=== PATIENT | female | born 1950 | race African-American/Black ===

== ENCOUNTER 2016-11-17 11:02 | Emergency (ER) | payer MEDICAID, OTHER ==
[~2016-11-17] VITALS: Ht 177.8 cm; Wt 105.0 kg
[~2016-11-17 11:02] MED LIST: BENA20TA77; MONT10TA21; QVAR80; TERB250T11; albuterol HHN
[2016-11-17] MEDS ORDERED: OLAN10TA19 PO (11:19)
[2016-11-17 12:23] LABS: BASOPHILS % 1.1 % (0.0-2.0); EOSINOPHILS % 0.8 % (0.0-5.0); HEMATOCRIT. 38.8 % (36.0-48.0); LYMPHOCYTES % 29.3 % (20.0-50.0); MEAN CORPUSCULAR HEMOGLOBIN 28.7 pg (28.0-32.0); MEAN CORPUSCULAR VOLUME 85.8 fL (81.0-99.0); NEUTROPHILS % 60.8 % (40.0-76.0); PLATELET 212 x1000/uL (130-400); RED BLOOD CELL COUNT 4.52 mill/uL (4.2-5.4); RED CELL DISTRIBUTION WIDTH 14.8 % (11.6-14.6)
[2016-11-17 12:25] LABS: PROTHROMBIN TIME 10.5 sec (9.4-11.6)
[2016-11-17 12:33] LABS: CARBON DIOXIDE 26 mEq/L (21-32); CHLORIDE 113 mEq/L (98-107); TROPONIN I < 0.02 ng/mL (0.00-0.04)
[2016-11-17] MEDS ORDERED: IPRATROPIUM BROMIDE (0.02%) 0.5MG/2.5ML NEB HHN STA (16:07)
[2016-11-17] MEDS ORDERED: ALBUTEROL (0.083%) 2.5MG/3ML NEB HHN STA (16:07)
[2016-11-17 17:40] VITALS: BP 153/90
== END 2016-11-17 17:45 | disposition home or self-care (01) ==
LOC: ER 12:59
DX: S00.83XA Contusion of other part of head, initial encounter (principal); R06.02 Shortness of breath; R73.9 Hyperglycemia, unspecified; J44.9 Chronic obstructive pulmonary disease, unspecified; F20.9 Schizophrenia, unspecified; F17.210 Nicotine dependence, cigarettes, uncomplicated; E87.6 Hypokalemia; E87.8 Other disorders of electrolyte and fluid balance, not elsewhere classified; Z98.890 Other specified postprocedural states; X58.XXXA Exposure to other specified factors, initial encounter; Y93.89 Activity, other specified; Y92.099 Unspecified place in other non-institutional residence as the place of occurrence of the external cause
CPT/HCPCS: 36415; 71010; 80053; 83880; 84484; 85025; 85610; 93005; 94640; 99285; J7611; Z7610

== ENCOUNTER 2016-11-30 08:54 | Inpatient (IN) | payer MEDICAID ==
[~2016-11-30] VITALS: Ht 177.8 cm; Wt 107.0 kg
[~2016-11-30 08:54] MED LIST changes: +OLAN10TA19 PO
[2016-11-30] MEDS ORDERED: METHYLPREDNISOLONE SOD SUCC 125 MG/2 ML VIAL IV STA (09:46)
[2016-11-30] MEDS ORDERED: IPRATROPIUM/ALBUTEROL 0.5-3(2.5)MG/3ML NEB HHN ONE (10:00)
[2016-11-30 10:50] LABS: BASOPHILS % 0.7 % (0.0-2.0); EOSINOPHILS % 1.1 % (0.0-5.0); HEMATOCRIT. 39.5 % (36.0-48.0); HEMOGLOBIN. 13.3 g/dL (12.0-16.0); LYMPHOCYTES % 28.3 % (20.0-50.0); MEAN CORPUSCULAR HEMOGLOBIN 28.7 pg (28.0-32.0); MEAN CORPUSCULAR VOLUME 85.2 fL (81.0-99.0); MEAN PLATELET VOLUME 8.2 fl (7.4-10.4); MONOCYTES % 7.8 % (2.0-8.0); NEUTROPHILS % 62.1 % (40.0-76.0); PLATELET 234 x1000/uL (130-400); RED BLOOD CELL COUNT 4.63 mill/uL (4.2-5.4); RED CELL DISTRIBUTION WIDTH 14.7 % (11.6-14.6)
[2016-11-30 10:59] LABS: PARTIAL THROMBOPLASTIN TIME 24.9 sec (23.4-31.0); PROTHROMBIN TIME 10.5 sec (9.4-11.6)
[2016-11-30 11:08] LABS: CARBON DIOXIDE 29 mEq/L (21-32); CHLORIDE 106 mEq/L (98-107); TROPONIN I < 0.02 ng/mL (0.00-0.04)
[2016-11-30 16:15] VITALS: BP 139/77
[2016-11-30 16:30] VITALS: BP 139/77
[2016-11-30] MEDS ORDERED: LISI10TA5 PO (17:37)
[2016-11-30] MEDS ORDERED: ASPI-1159 PO (17:37)
[2016-11-30] MEDS ORDERED: HYDR12.54 PO (17:37)
[2016-11-30] MEDS ORDERED: BUDE6HFA INH (17:46)
[2016-11-30] MEDS ORDERED: IPRATROPIUM/ALBUTEROL 0.5-3(2.5)MG/3ML NEB HHN PRN (18:15)
[2016-11-30] MEDS ORDERED: POTASSIUM CHLORIDE 20MEQ TABLET SR PO NR (18:22)
[2016-11-30] MEDS ORDERED: HYDROCODONE/ACETAMINOPHEN 10/325MG TABLET PO PRN (18:22)
[2016-11-30] MEDS: METHYLPREDNISOLONE SOD SUCC 40 MG/ML VIAL IV SCH (18:44)
[2016-11-30 20:00] VITALS: BP 133/79
[2016-11-30] MEDS: LEVOFLOXACIN 500MG PREMIX 100 ML IV SCH (20:00)
[2016-11-30] MEDS: IPRATROPIUM/ALBUTEROL 0.5-3(2.5)MG/3ML NEB HHN SCH (20:30)
[2016-11-30 22:00] VITALS: BP 133/79
[2016-12-01] VITALS (8 sets, daily range): BP systolic 105–162; BP diastolic 56–94
[2016-12-01] MEDS: IPRATROPIUM/ALBUTEROL 0.5-3(2.5)MG/3ML NEB HHN SCH ×6 (00:56→21:09)
[2016-12-01] MEDS: METHYLPREDNISOLONE SOD SUCC 40 MG/ML VIAL IV SCH ×3 (01:47→17:55)
[2016-12-01] MEDS ORDERED: MEDICATION NOT ON FORMULARY EA (Hydrochlorothiazide 12.5 MG) PO SCH (09:00)
[2016-12-01] MEDS: HYDROCHLOROTHIAZIDE 12.5MG CAPSULE PO SCH (09:19)
[2016-12-01] MEDS: LISINOPRIL 10MG TABLET PO SCH (09:21)
[2016-12-01] MEDS: ASPIRIN 81MG EC TABLET PO SCH (09:21)
[2016-12-01] MEDS: ENOXAPARIN 40MG/0.4ML SYR SUBCUT SCH (09:23)
[2016-12-01] MEDS ORDERED: BUDESONIDE 0.5MG/2ML NEB HHN SCH (17:15)
[2016-12-01] MEDS: LEVOFLOXACIN 500MG PREMIX 100 ML IV SCH (20:05)
[2016-12-01] MEDS: BUDESONIDE 0.5MG/2ML NEB HHN SCH (21:09)
[2016-12-01 21:21] LABS: T4 FREE 0.97 ng/dL (0.76-1.46)
[2016-12-02] VITALS: BP 108/72
[2016-12-02] MEDS: IPRATROPIUM/ALBUTEROL 0.5-3(2.5)MG/3ML NEB HHN SCH ×4 (00:58→12:46)
[2016-12-02] MEDS: METHYLPREDNISOLONE SOD SUCC 40 MG/ML VIAL IV SCH ×2 (02:20→09:53)
[2016-12-02 04:00] VITALS: BP 111/68
[2016-12-02 08:00] VITALS: BP 134/76
[2016-12-02] MEDS: BUDESONIDE 0.5MG/2ML NEB HHN SCH (08:28)
[2016-12-02] MEDS: HYDROCHLOROTHIAZIDE 12.5MG CAPSULE PO SCH (09:23)
[2016-12-02] MEDS: ASPIRIN 81MG EC TABLET PO SCH (09:24)
[2016-12-02] MEDS: LISINOPRIL 10MG TABLET PO SCH (09:24)
[2016-12-02] MEDS: ENOXAPARIN 40MG/0.4ML SYR SUBCUT SCH (09:24)
[2016-12-02 12:00] VITALS: BP 136/83
[2016-12-02 16:00] VITALS: BP 131/96
[2016-12-02] MEDS ORDERED: METH4TAB17 PO (16:52)
[2016-12-02] MEDS ORDERED: LEVO500T2 PO (16:52)
[2016-12-02] MEDS ORDERED: BUDE6HFA INH (16:52)
[2016-12-02 16:54] VITALS: BP 136/83
[2016-12-02] MEDS ORDERED: LEVOFLOXACIN 500MG TABLET PO SCH (17:00)
[2016-12-02] MEDS ORDERED: PREDNISONE 20MG TABLET PO SCH (17:00)
== END 2016-12-02 17:40 | disposition home or self-care (01) | DRG 140 ==
LOC: ER 11:19 → 5WST 11:59 → EDBEDREQ 12:00 → ENRESERV 14:46
PROVIDERS: ADMIT Internal Medicine; ATTEND Internal Medicine
DX: J44.1 Chronic obstructive pulmonary disease with (acute) exacerbation (principal); J96.20 Acute and chronic respiratory failure, unspecified whether with hypoxia or hypercapnia; I50.9 Heart failure, unspecified; I11.0 Hypertensive heart disease with heart failure; Z99.81 Dependence on supplemental oxygen; F20.9 Schizophrenia, unspecified; E07.9 Disorder of thyroid, unspecified; F17.200 Nicotine dependence, unspecified, uncomplicated; E03.9 Hypothyroidism, unspecified; E66.9 Obesity, unspecified; Z79.899 Other long term (current) drug therapy; Z68.33 Body mass index [BMI] 33.0-33.9, adult
CPT/HCPCS: 36415; 71010; 80053; 83880; 84439; 84443; 84481; 84484; 85025; 85610; 85730; 93005; 93306; 94640; 96374; 99285; J1650; J1956; J2920; J2930; J7050; J7512; J7620; J7626

== ENCOUNTER 2017-04-15 09:40 | Emergency (ER) | payer MEDICAID ==
[~2017-04-15] VITALS: Ht 177.8 cm; Wt 105.0 kg
[~2017-04-15 09:40] MED LIST changes: +ASPI-1159 PO; -BENA20TA77; +BUDE6HFA INH; +HYDR12.54 PO; +LEVO500T2 PO; +LISI10TA5 PO; +METH4TAB17 PO; -MONT10TA21; -OLAN10TA19 PO; -QVAR80; -TERB250T11
[2017-04-15] MEDS ORDERED: ALBUTEROL (0.083%) 2.5MG/3ML NEB HHN STA (10:24)
[2017-04-15] MEDS ORDERED: SODIUM CHLORIDE 0.9% 1,000 ML IV ONE (10:24)
[2017-04-15] MEDS ORDERED: METHYLPREDNISOLONE SOD SUCC 125 MG/2 ML VIAL IV STA (10:24)
[2017-04-15] MEDS ORDERED: IPRATROPIUM BROMIDE (0.02%) 0.5MG/2.5ML NEB HHN STA (10:24)
[2017-04-15 11:02] LABS: BASOPHILS % 1.1 % (0.0-2.0); EOSINOPHILS % 1.5 % (0.0-5.0); HEMATOCRIT. 41.4 % (36.0-48.0); HEMOGLOBIN. 13.8 g/dL (12.0-16.0); LYMPHOCYTES % 40.9 % (20.0-50.0); MEAN CORPUSCULAR HEMOGLOBIN 28.7 pg (28.0-32.0); MEAN CORPUSCULAR VOLUME 86.3 fL (81.0-99.0); MEAN PLATELET VOLUME 7.3 fl (7.4-10.4); NEUTROPHILS % 46.5 % (40.0-76.0); PLATELET 234 x1000/uL (130-400); RED CELL DISTRIBUTION WIDTH 15.3 % (11.6-14.6)
[2017-04-15 11:17] LABS: CARBON DIOXIDE 31 mEq/L (21-32); CHLORIDE 108 mEq/L (98-107); TROPONIN I < 0.02 ng/mL (0.00-0.04)
[2017-04-15 11:48] LABS: CLARITY URINE CLEAR (CLEAR); COLOR URINE YELLOW (YELLOW); KETONES URINE NEGATIVE (NEGATIVE); LEUKOCYTE ESTERASE URINE TRACE (NEGATIVE); NITRITE URINE NEGATIVE (NEGATIVE); OCCULT BLOOD URINE NEGATIVE (NEGATIVE); PH URINE 6.5 (4.5-8.0); PROTEIN URINE NEGATIVE (NEGATIVE); SPECIFIC GRAVITY URINE 1.009 (1.005-1.030); UROBILINOGEN URINE 0.2 E.U./dL (0.2-1.0)
[2017-04-15 13:09] VITALS: BP 160/97
== END 2017-04-15 13:10 | disposition home or self-care (01) ==
LOC: ER 09:59
DX: J44.1 Chronic obstructive pulmonary disease with (acute) exacerbation (principal); I10 Essential (primary) hypertension; F20.9 Schizophrenia, unspecified; F17.200 Nicotine dependence, unspecified, uncomplicated; Z79.82 Long term (current) use of aspirin
CPT/HCPCS: 36415; 71045; 80053; 81001; 83690; 84484; 85025; 93005; 94640; 96361; 96374; 99285; J2930; J7030; J7611

== ENCOUNTER 2017-05-18 18:01 | Observation (INO) | payer MEDICAID ==
[~2017-05-18] VITALS: Ht 177.8 cm; Wt 104.3 kg
[2017-05-18] MEDS ORDERED: DIPHENHYDRAMINE 50MG/ML VIAL IV ONE (21:00)
[2017-05-18] MEDS ORDERED: METHYLPREDNISOLONE SOD SUCC 125 MG/2 ML VIAL IV ONE (21:00)
[2017-05-18] MEDS ORDERED: FAMOTIDINE 20MG/2ML VIAL IV ONE (21:00)
[2017-05-18 21:45] LABS: CHLORIDE 108 mEq/L (98-107)
[2017-05-18 21:46] LABS: PROTHROMBIN TIME 10.8 sec (9.4-11.6)
[2017-05-18 21:49] LABS: BASOPHILS % 0.4 % (0.0-2.0); HEMATOCRIT. 42.9 % (36.0-48.0); HEMOGLOBIN. 14.2 g/dL (12.0-16.0); LYMPHOCYTES % 13.6 % (20.0-50.0); MEAN CORPUSCULAR VOLUME 87.3 fL (81.0-99.0); MEAN PLATELET VOLUME 8.1 fl (7.4-10.4); MONOCYTES % 3.8 % (2.0-8.0); NEUTROPHILS % 82.2 % (40.0-76.0); PLATELET 267 x1000/uL (130-400); RED BLOOD CELL COUNT 4.91 mill/uL (4.2-5.4); RED CELL DISTRIBUTION WIDTH 14.7 % (11.6-14.6)
[2017-05-18 21:56] LABS: TROPONIN I < 0.02 ng/mL (0.00-0.04)
[2017-05-19 01:14] VITALS: BP 152/93
[2017-05-19 04:00] VITALS: BP 145/76
[2017-05-19] MEDS ORDERED: GUAIFENESIN/CODEINE 200-20MG/10ML UDC PO PRN (06:30)
[2017-05-19] MEDS ORDERED: GUAIFENESIN-DM 200MG-20MG/10ML UDC PO PRN (06:45)
[2017-05-19] MEDS ORDERED: PRED5TAB48 PO (08:47)
[2017-05-19] MEDS ORDERED: HYDROCODONE/ACETAMINOPHEN 10/325MG TABLET PO PRN (10:45)
[2017-05-19] MEDS ORDERED: ASPIRIN 81MG EC TABLET PO SCH (10:45)
[2017-05-19] MEDS ORDERED: DIPHENHYDRAMINE 50MG/ML VIAL IV PRN (10:45)
[2017-05-19] MEDS ORDERED: HYDROCODONE/ACETAMINOPHEN 5/325MG TABLET PO PRN (10:45)
[2017-05-19] MEDS ORDERED: NA PHOS,M-B/NA PHOS,DI-BA ENEMA 118ML PR PRN (10:45)
[2017-05-19] MEDS ORDERED: LORAZEPAM 0.5MG TABLET PO PRN (10:45)
[2017-05-19] MEDS ORDERED: ONDANSETRON HCL 4MG/2ML VIAL IV PRN (10:45)
[2017-05-19] MEDS ORDERED: LISINOPRIL 10MG TABLET PO SCH (10:45)
[2017-05-19] MEDS ORDERED: DOCUSATE SODIUM 100MG CAPSULE PO PRN (10:45)
[2017-05-19] MEDS ORDERED: ACETAMINOPHEN 325MG TABLET PO PRN (10:45)
[2017-05-19] MEDS ORDERED: ENOXAPARIN 40MG/0.4ML SYR SUBCUT SCH (10:45)
[2017-05-19] MEDS ORDERED: CLONIDINE 0.1MG TABLET PO PRN (10:45)
[2017-05-19] MEDS ORDERED: GUAIFENESIN 200MG/10ML SUGAR FREE UDC PO PRN (10:45)
[2017-05-19] MEDS ORDERED: ENOXAPARIN 30MG/0.3ML SYR SUBCUT SCH (11:00)
[2017-05-19] MEDS ORDERED: IPRATROPIUM/ALBUTEROL 0.5-3(2.5)MG/3ML NEB HHN SCH (12:00)
[2017-05-19] MEDS ORDERED: POLYETHYLENE GLYCOL 3350 (17GM) 1 DOSE PACK PO SCH (12:30)
[2017-05-19 16:00] VITALS: BP 130/70
[2017-05-19] MEDS ORDERED: MORPHINE SULFATE 4 MG/ML CPJ (NOT FOR IM USE) IV PRN (17:10)
[2017-05-19 17:25] LABS: CREATINE KINASE 118 IU/L (26-192); CREATINE KINASE MB FRACTION 1.7 ng/mL (0.5-3.6); HDL CHOLESTEROL 75 mg/dL (40-59); LDL CHOLESTEROL 57 mg/dL (5-100); TROPONIN I < 0.02 ng/mL (0.00-0.04)
[2017-05-19 17:43] VITALS: BP 131/73
[2017-05-19] MEDS ORDERED: AMLODIPINE 5MG TABLET PO SCH (21:00)
== END 2017-05-19 19:30 | disposition home or self-care (01) ==
LOC: EDBEDREQ 21:00 → EDBEDREQTM 22:35 → EDBEDREQ 22:35 → ENRESERV 22:41 → ER 23:50 → INTOOBSV 23:51 → 8WST 23:51
PROVIDERS: ADMIT Internal Medicine; ATTEND Internal Medicine
DX: T46.4X5A Adverse effect of angiotensin-converting-enzyme inhibitors, initial encounter (principal); R07.0 Pain in throat; R07.89 Other chest pain; J44.9 Chronic obstructive pulmonary disease, unspecified; I10 Essential (primary) hypertension; E66.9 Obesity, unspecified; F17.200 Nicotine dependence, unspecified, uncomplicated; Y92.89 Other specified places as the place of occurrence of the external cause
CPT/HCPCS: 36415; 71045; 80053; 80061; 82550; 82553; 84484; 85025; 85610; 86850; 86900; 86901; 93005; 94664; 96372; 96374; 96375; 99285; G0378; J1200; J1650; J2930; J3490; J7620

== ENCOUNTER 2019-12-03 17:46 | Emergency (ER) | payer MEDICAID ==
[~2019-12-03] VITALS: Ht 177.8 cm; Wt 99.7 kg
[~2019-12-03 17:46] MED LIST changes: -ASPI-1159 PO; +ASPI-1497 PO; -LISI10TA5 PO
[2019-12-03] MEDS ORDERED: SODIUM CHLORIDE 0.9% 1,000 ML IV ONE (18:33)
[2019-12-03 19:22] LABS: BASOPHILS % 0.8 % (0.0-2.0); HEMATOCRIT. 46.3 % (36.0-48.0); HEMOGLOBIN. 15.2 g/dL (12.0-16.0); LYMPHOCYTES % 35.2 % (20.0-50.0); MEAN CORPUSCULAR HEMOGLOBIN 29.1 pg (28.0-32.0); MEAN CORPUSCULAR VOLUME 88.6 fL (81.0-99.0); MEAN PLATELET VOLUME 7.9 fl (7.4-10.4); MONOCYTES % 7.6 % (2.0-8.0); NEUTROPHILS % 55.4 % (40.0-76.0); PLATELET 255 x1000/uL (130-400); RED BLOOD CELL COUNT 5.22 mill/uL (4.2-5.4); RED CELL DISTRIBUTION WIDTH 14.7 % (11.6-14.6)
[2019-12-03 19:29] LABS: CHLORIDE 104 mEq/L (98-107)
[2019-12-03] MEDS ORDERED: POTASSIUM CHLORIDE 20MEQ TABLET SR PO NR (19:30)
[2019-12-03 22:20] LABS: CLARITY URINE CLOUDY (CLEAR); COLOR URINE YELLOW (YELLOW); KETONES URINE TRACE (NEGATIVE); LEUKOCYTE ESTERASE URINE 1+ (NEGATIVE); NITRITE URINE NEGATIVE (NEGATIVE); OCCULT BLOOD URINE NEGATIVE (NEGATIVE); PH URINE >=9.0 (4.5-8.0); PROTEIN URINE TRACE (NEGATIVE); SPECIFIC GRAVITY URINE 1.021 (1.005-1.030); UROBILINOGEN URINE 0.2 E.U./dL (0.2-1.0)
[2019-12-03 23:15] VITALS: BP 128/79
== END 2019-12-03 23:10 | disposition home or self-care (01) ==
LOC: ER 17:46
DX: E87.6 Hypokalemia (principal); N39.0 Urinary tract infection, site not specified; R03.0 Elevated blood-pressure reading, without diagnosis of hypertension; J44.9 Chronic obstructive pulmonary disease, unspecified
CPT/HCPCS: 36415; 70450; 71045; 80053; 81003; 83880; 84484; 85025; 93005; 96360; 96361; 99285; J7030

== ENCOUNTER 2020-01-11 11:09 | Emergency (ER) | payer MEDICAID ==
[~2020-01-11] VITALS: Ht 175.3 cm; Wt 111.0 kg
[2020-01-11] MEDS ORDERED: HYDROCODONE/ACETAMINOPHEN 5/325MG TABLET PO ONE (12:00)
[2020-01-11 12:30] LABS: BASOPHILS % 0.9 % (0.0-2.0); EOSINOPHILS % 1.7 % (0.0-5.0); HEMATOCRIT. 42.7 % (36.0-48.0); HEMOGLOBIN. 14.1 g/dL (12.0-16.0); LYMPHOCYTES % 30.9 % (20.0-50.0); MEAN CORPUSCULAR HEMOGLOBIN 29.3 pg (28.0-32.0); MEAN CORPUSCULAR VOLUME 88.6 fL (81.0-99.0); MEAN PLATELET VOLUME 8.3 fl (7.4-10.4); MONOCYTES % 11.2 % (2.0-8.0); NEUTROPHILS % 55.3 % (40.0-76.0); PLATELET 226 x1000/uL (130-400); RED BLOOD CELL COUNT 4.82 mill/uL (4.2-5.4); RED CELL DISTRIBUTION WIDTH 15.5 % (11.6-14.6)
[2020-01-11 12:35] LABS: CHLORIDE 109 mEq/L (98-107)
[2020-01-11 13:11] LABS: CLARITY URINE CLEAR (CLEAR); COLOR URINE YELLOW (YELLOW); KETONES URINE NEGATIVE (NEGATIVE); LEUKOCYTE ESTERASE URINE NEGATIVE (NEGATIVE); NITRITE URINE NEGATIVE (NEGATIVE); OCCULT BLOOD URINE NEGATIVE (NEGATIVE); PH URINE 5.5 (4.5-8.0); PROTEIN URINE NEGATIVE (NEGATIVE); UROBILINOGEN URINE 0.2 E.U./dL (0.2-1.0)
[2020-01-11 17:07] VITALS: BP 146/92
== END 2020-01-11 17:16 | disposition home or self-care (01) ==
LOC: ER 11:09
DX: M79.18 Myalgia, other site (principal); R09.81 Nasal congestion
CPT/HCPCS: 36415; 71045; 80053; 81003; 84484; 85025; 93005; 99285